=== PATIENT | female | born 1935 ===

== ENCOUNTER 2017-06-05 14:59 | Emergency (ER) | payer OTHER ==
[2017-06-05 15:13] VITALS: BP 135/69; PULSE 69; RESP 20; TEMP 97.2; O2SAT 98
--- NOTE | 2017-06-05 15:32 | C.PDOC ---
History Of Present Illness 82 yo female w/PMHx of NIDDM, OA, chronic left shoulder pain, come in for evaluation of left shoulder pain exacerbation for past few days. As per pt, " came from [place] where I was told I need a surgery on my shoulder due to torn ligaments". Pt sts, pain is chronic, similar in past. Pt sts, pain is localized over Left shoulder, non-radiating and worse with movement. Otherwise, pt denies recent trauma or injury, fever, chills, skin changes, denies new weakness, sensory or vascular deficits to left arm, denies CP, SOB, dyspnea, diaphoresis, palpitation, abd. pain, N/V. Ambulate to ED for evaluation, not in any apparent distress. Pain medication was offered to pt, refused at present time. Time Seen by Provider: 06/05/17 15:29 Chief Complaint (Nursing): Upper Extremity Problem/Injury History Per: Patient, Family Onset/Duration Of Symptoms: Intermittent Episodes Past Medical History Reviewed: Historical Data, Nursing Documentation, Vital Signs Vital Signs: Last Vital Signs Temp 97.2 F L 06/05/17 15:09 Pulse 69 06/05/17 15:09 Resp 20 06/05/17 15:09 BP 135/69 06/05/17 15:09 Pulse Ox 98 06/05/17 15:32 - Medical History PMH: HTN, Hypercholesterolemia, Hyperlipidemia, Osteoporosis Surgical History: Cholecystectomy Family History: States: No Known Family Hx - Social History Hx Alcohol Use: No Hx Substance Use: No - Immunization History Hx Tetanus Toxoid Vaccination: No Hx Influenza Vaccination: Yes (2016) Hx Pneumococcal Vaccination: No Review Of Systems Except As Marked, All Systems Reviewed And Found Negative. Constitutional: Negative for: Fever, Chills Eyes: Negative for: Vision Change ENT: Negative for: Throat Pain Cardiovascular: Negative for: Chest Pain, Palpitations, Orthopnea, Paroxysmal Noc. Dyspnea, Edema, Light Headedness Respiratory: Negative for: Cough, Shortness of Breath, Wheezing Gastrointestinal: Negative for: Nausea, Vomiting Musculoskeletal: Positive for: Shoulder Pain (Left) Skin: Negative for: Rash Neurological: Negative for: Weakness, Numbness, Altered Mental Status, Headache , Dizziness Physical Exam - Physical Exam Appears: Well, Non-toxic, No Acute Distress Skin: Normal Color, Warm, No Rash Head: Normacephalic Eye(s): bilateral: PERRL Throat: No Erythema, No Drooling Neck: Normal ROM, Trachea Midline, No Midline Cervical Tenderness, No Paracervical Tenderness, No Step Off Deformity, Supple Cardiovascular: Rhythm Regular, No Friction Rub, No Murmur, No JVD, Other ((-) carotid bruits B/L) Respiratory: No Decreased Breath Sounds, No Accessory Muscle Use, No Stridor, No Wheezing Gastrointestinal/Abdominal: Soft, No Tenderness Extremity: Normal ROM (LUE), Tenderness (diffuse tenderness over Left shoulder. No deformity, no neurovascular deficits.), No Deformity, No Swelling Neurological/Psych: Oriented x3, Normal Speech, Normal Motor, Normal Sensation, Normal Reflexes ED Course And Treatment ECG: Interpreted By Me, Viewed By Me Interpretation Of ECG: SR@66/min, NAD, no acute T wave or ST-T changes. O2 Sat by Pulse Oximetry: 98 - Other Rad SHOULDER, LEFT X-Ray: Interpreted by Me, Viewed By Me Interpretation: (+)CALCIFIC TENDONITIS, NO ACUTE FX OR DISLOCATION Progress Note: On re-evaluation, pt is afebrile, hewmodynamicaly stable. non- toxic. Neck: Supple. Lungs: CTA B/L, BS equal B/L. CVS: (+)S1S2, reg. LUE: exam c/w shoulder arthralgia, (-) deformity. FAROM, no neurovascular deficits. Neurologicaly intact. Imaging review and c/w calcific tendonitis. EKG- no acute abnormalities. Pt advised andref. To F/U with Ortho in 2-3 days for re- eval. return to ED if any worsening or new changes. Disposition Counseled Patient/Family Regarding: Studies Performed, Diagnosis, Need For Followup - Disposition Referrals: [facility] [Outside] [facility] [Outside] Disposition: HOME/ ROUTINE Disposition Time: 16:12 Condition: STABLE Additional Instructions: TYLENOL FOR PAIN NEED FOLLOW UP WITH ORTHOPEDIST IN 2-3 DAYS AT CLINIC FOR FURTHER EVALUATION AND TREATMENT. RETURN TO ED IF ANY WORSENING OR NEW CHANGES. Instructions: Calcific Tendinitis (ED), Shoulder Pain (ED) Forms: [employer] ([place]) - Clinical Impression Clinical Impression: Calcific tendinitis
--- NOTE | 2017-06-05 16:22 | RAD ---
PROCEDURE: Radiographs of the Left Shoulder HISTORY: pain COMPARISON: No prior. FINDINGS: BONES: No fracture. . No dislocation JOINTS: . Glenohumeral and acromioclavicular joint osteoarthritis. SOFT TISSUES: Left calcific rotator cuff tendinopathy and/or calcific bursitis. OTHER FINDINGS: Left upper lobe pulmonary granulomatous disease IMPRESSION: Left calcific rotator cuff tendinopathy and/or calcific bursitis. Left upper lobe pulmonary granulomatous disease
--- NOTE | 2017-06-08 18:22 | CARD ---
APPROVED REPORT EKG Measurement Heart [id number] <Conclusion> Normal sinus rhythm Normal ECG
== END 2017-06-05 16:34 | disposition home or self-care (01) ==
LOC: C.ER 14:59
DX: M75.32 Calcific tendinitis of left shoulder (principal)